=== PATIENT | female | born 1950 | race Caucasian/White ===

== ENCOUNTER 2023-08-27 10:39 | Outpatient (CLI) | payer MEDICARE, BC | END 2023-08-27 10:40 | disposition home or self-care (01) | LOC: CSHCP 10:39 | PROVIDERS: ATTEND Internal Medicine Critical Care Medicine | DX: J84.9 Interstitial pulmonary disease, unspecified (principal) | CPT/HCPCS: 94060; 94664; 94726; 94729; 94760 ==

== ENCOUNTER 2024-09-25 12:43 | Outpatient (CLI) | payer MEDICARE, BC | END 2024-09-25 12:44 | disposition home or self-care (01) | LOC: CSHCP 12:43 | PROVIDERS: ATTEND Internal Medicine Critical Care Medicine | DX: J84.9 Interstitial pulmonary disease, unspecified (principal); J84.10 Pulmonary fibrosis, unspecified; J43.9 Emphysema, unspecified; R94.2 Abnormal results of pulmonary function studies | CPT/HCPCS: 71250; 94060; 94664; 94726; 94729; 94760 ==

== ENCOUNTER 2024-10-29 09:51 | Outpatient (CLI) | payer MEDICARE, BC | END 2024-10-29 09:52 | disposition home or self-care (01) | LOC: CSHMAMMO 09:51 | PROVIDERS: ATTEND Internal Medicine | DX: Z12.31 Encounter for screening mammogram for malignant neoplasm of breast (principal); M81.0 Age-related osteoporosis without current pathological fracture; M85.89 Other specified disorders of bone density and structure, multiple sites | CPT/HCPCS: 77063; 77067; 77080 ==